=== PATIENT | female | born 1960 | race African-American/Black ===

== ENCOUNTER → 2018-09-08 | Day surgery (SDC) | payer BC ==
--- NOTE | 2018-09-09 16:08 | PATH ---
Surgical Pathology Report Patient Name: PAM HAMILTON [facility] Rec. #: [id number] /Age/Gender: 1960 (Age: 58) / F Account: [id number] Location: [facility] Taken: 09/08/2018 Received: 09/08/2018 Reported: 09/09/2018 Physicians: Donal Brooke M.D. Specimen(s) Received LEFT BREAST SPECIMEN WITH CALCIFICATIONS Clinical History Nonpalpable lesion Mammographic findings: Microcalcification, highly suspicious/malignant Patient has known left breast cancer Final Diagnosis BREAST, LEFT, WITH CALCIFICATIONS, STEREOTACTIC CORE BIOPSY: INVASIVE DUCTAL CARCINOMA, POORLY DIFFERENTIATED, MEASURING AT LEAST 1.7 CM IN THIS MATERIAL. STROMAL CALCIFICATIONS PRESENT. Comment: Immunohistochemical stain performed and interpreted at [facility] show the tumor is diffusely positive for E-cadherin, supportive of ductal phenotype. Results of Estrogen Receptor (ER) and Progesterone Receptor (MI) studies performed at [facility] are as follows: ER (clone [id number] mouse monoclonal antibody by [employer]): ~3-5% nuclear staining with weak intensity (Low Positive). MI (clone16 mouse monoclonal antibody by [employer]): 0% nuclear staining (Negative). Results of Her2 (IHC) & Ki-67 studies pending and will be reported separately Positive and negative controls (internal if applicable) show appropriate results. Formalin fixation and cold ischemic times are within current ASCO/CAP recommendations for ER, MI and Her2 testing. Electronically Signed Shruthi Mccoy M.D. Addendum Reported: 09/12/2018 Addendum Diagnosis A Results of Her2 (IHC) & Ki-67 studies performed on block "1" at [place], [place] ([id number]) are as follows: Her2 IHC (EP3 from [employer], formerly known as [id number], using Diaz Polymer Refine detection kit): 0 (Negative). Ki-67: ~35% (High proliferative index). Comment: PDL-1 and PD-1 pending. Results will be reported as an addendum. Findings discussed with Dr. Navas. Positive and negative controls (internal if applicable) show appropriate results. Shruthi Mccoy M.D. 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 No reactivity is seen within neoplastic cells. See [facility] report (Specimen #: [id number]) for additional details. Reynaldo Bustillos M.D. Addendum Reported: 09/22/2018 Addendum Diagnosis PD-L[facility] [place] ([id number]) shows the following: RESULTS: Case Cancelled PD-L1 SP142 is approved for use in primary or metastatic urothelial or triple negative breast carcinoma only. Per path report, ER is positive (~3-5% nuclear staining reported). Reynaldo Bustillos M.D. Gross Description Received in formalin labeled "left breast with calcifications," are 6 salgado-yellow, cylindrical portions of fibroadipose tissue ranging from 1.4-2.1 cm in length and averaging 0.2 cm in diameter. The specimens are submitted in toto in 2 cassettes. Time to formalin fixation: 5 minutes Total formalin fixation time: Approximately 6 hours. 09/08/2018 saudi09/08/2018
== END | disposition home or self-care (01) ==
LOC: FMAMMOTONE 10:44
PROVIDERS: ATTEND Internal Medicine Hematology & Oncology
PROC: 0HBU3ZX Excision of Left Breast, Percutaneous Approach, Diagnostic (ICD-10-PCS; principal; 2018-09-08)
DX: C50.212 Malignant neoplasm of upper-inner quadrant of left female breast (principal); Z17.0 Estrogen receptor positive status [ER+]; R92.1 Mammographic calcification found on diagnostic imaging of breast
CPT/HCPCS: 19081; 88305-TC; 88342-TC

== ENCOUNTER 2018-11-22 15:13 | Inpatient (IN) | payer BC ==
--- NOTE | 2018-11-22 15:54 | HP ---
CHIEF COMPLAINT: Oncologist: Dr. Navas HISTORY OF PRESENT ILLNESS: 58 year-old female with a PMH significant for left breast cancer presently on immunotherapy. Patient presented earlier today in the office of her oncologist, Dr. Navas. Routine blood worked showed Hgb 8.6, dropped from 10.2. On this admission, Hgb is 8.2. The patient also presented with complaints of increasing shortness of breath that began three days ago and has become progressively worse to the point today where she can no longer walk or speak without feeling SOB. Patient has also been suffering from low back pain that radiates to the right hip and down the right leg. She also reports mild right lid lag x [address] Navas referred patient to [facility] for admission. He advises patient had a recent PET scan that was negative. Recent Travel: No PAST MEDICAL HISTORY: Left breast cancer PAST SURGICAL HISTORY: Partial hysterectomy secondary to fibroids Tonsillectomy Ectopic Social History: Smoking: quit 01/2018; smoked since age 16 Alcohol: occasional wine Drugs: no Family History: Father age 85 with COPD; mother age 85 anemia; sister anemia HOME MEDICATIONS: NONE REVIEW OF SYSTEMS CONSTITUTIONAL: Absent: fever, chills, diaphoresis, generalized weakness, malaise, loss of appetite, weight change HEENT: +right lid lag Absent: rhinorrhea, nasal congestion, throat pain, throat swelling, difficulty swallowing, mouth swelling, ear pain, eye pain, visual changes CARDIOVASCULAR: Absent: chest pain, syncope, palpitations, irregular heart rate, lightheadedness , peripheral edema RESPIRATORY: +SOB Absent: cough, shortness of breath, dyspnea with exertion, orthopnea, wheezing, stridor, hemoptysis GASTROINTESTINAL: Absent: abdominal pain, abdominal distension, nausea, vomiting, diarrhea, constipation, melena, hematochezia GENITOURINARY: Absent: dysuria, frequency, urgency, hesitancy, hematuria, flank pain, genital pain MUSCULOSKELETAL: +low back pain radiating to right hip down right leg Absent: myalgia, arthralgia, joint swelling, neck pain SKIN: Absent: rash, itching, pallor HEMATOLOGIC/IMMUNOLOGIC: Absent: easy bleeding, easy bruising, lymphadenopathy, frequent infections ENDOCRINE: Absent: unexplained weight gain, unexplained weight loss, heat intolerance, cold intolerance NEUROLOGIC: Absent: headache, focal weakness or paresthesias, dizziness, unsteady gait, seizure, mental status changes, bladder or bowel incontinence PSYCHIATRIC: Absent: anxiety, depression, suicidal or homicidal ideation, hallucinations. PHYSICAL EXAMINATION Vital Signs Temperature 9.4 F L 11/22/18 16:28 Pulse Rate 97 H 11/22/18 16:28 Respiratory Rate 17 11/22/18 16:28 Blood Pressure 115/77 11/22/18 16:28 O2 Sat by Pulse Oximetry (%) 98 11/22/18 16:32 GENERAL: Awake, alert, and fully oriented, in no acute distress. HEAD: Normal with no signs of trauma. EYES: Pupils equal, round and reactive to light, extraocular movements intact, sclera anicteric, conjunctiva clear. Mild right sided ptosis EARS, NOSE, THROAT: Ears normal, nares patent, oropharynx clear without exudates. Moist mucous membranes. NECK: Normal range of motion, supple without lymphadenopathy, JVD, or masses. LUNGS: Breath sounds equal, clear to auscultation bilaterally. No wheezes, and no crackles. No accessory muscle use. Dyspneic with speaking HEART: Regular rate and rhythm, S1 and S2 ABDOMEN: Soft, nontender, not distended MUSCULOSKELETAL: SLR to 10 degrees bilaterally secondary to pain UPPER EXTREMITIES: 2+ pulses, warm, well-perfused. No cyanosis. No clubbing. No peripheral edema. LOWER EXTREMITIES: 2+ pulses, warm, well-perfused. No calf tenderness. No peripheral edema. NEUROLOGICAL: Cranial nerves II-XII intact. Normal speech. ASSESSMENT/PLAN 58 year-old female with a PMH significant for left breast cancer presently on immunotherapy. Admitted for anemia requiring transfusion, low back pain with right-sided radiculopathy and SOB. Left breast cancer Anemia associated with neoplastic therapy Microcytic anemia --per Dr. Navas, was to transfuse 2U PRBC but hypoxic with some evidence of CHF (see below) --will give Lasix before and after first unit and reassess in am --iron studies pending (on labs drawn prior to transfusion) Hypoxic respiratory failure Tachycardia --moderate Wells risk for PE; D-dimer >17,600; gave lovenox 65mg x 1 --CTA negative for PE Heart failure NOS --CTA shows mild bibasilar interstitial congestion --had normal echo 08/23/18: LV normal, EF 65%; RV normal; no valvular pathology --repeat echo --Lasix IVP 40mg x 1 ECG changes Prolonged QTc --T wave inversions V1-V5 on serial ECGs -first troponin negative, two pending --ASA 325mg x 1 --telemetry monitoring --cardiology consult; discussed with Dr. Morales, appreciate his input Transaminitis --repeat in am Back pain with right-sided radiculopathy --MRI scheduled for tomorrow --Tylenol q6h scheduled; oxycodone 5mg q6h PRN FEN Fluids: PO intake adequate Electrolytes: replete as indicated Nutrition: regular diet DVT prophylaxis: subq lovenox 40mg at 9am Dispo: continues to require inpatient care. Full code. Problem List - Problem (1) Anemia associated with chemotherapy Code(s): D64.81 - ANEMIA DUE TO ANTINEOPLASTIC CHEMOTHERAPY; T45.1X5A - ADVERSE EFFECT OF ANTINEOPLASTIC AND IMMUNOSUP DRUGS, INIT Visit type - Emergency Visit Emergency Visit: Yes ED Registration Date: 11/22/18 Care time: The patient presented to the Emergency Department on the above date and was hospitalized for further evaluation of their emergent condition. - New Patient This patient is new to me today: Yes Date on this admission: 11/22/18 - Critical Care Critical Care patient: Yes Total Critical Care Time (in minutes): 120 Critical Care Statement: The care of this patient involved high complexity decision making to prevent further life threatening deterioration of the patient 's condition and/or to evaluate & treat vital organ system(s) failure or risk of failure.
[2018-11-22 16:37] VITALS: BMI 23.5
[2018-11-22] MEDS ORDERED: oxyCODONE HCL 5 MG TABLET PO PRN (17:15)
[2018-11-22] MEDS: ACETAMINOPHEN 325 MG TABLET (FP) PO SCH (17:58)
[2018-11-22 18:06] LABS: MCH 24.6 pg (25.7-33.7); MEAN CELL VOLUME 74.5 fl (80-96); MEAN PLT VOLUME 8.2 fl (7.5-11.1); PLATELET COUNT 156 K/MM3 (134-434); RBC 3.36 M/mm3 (3.60-5.2); RDW 21.5 % (11.6-15.6); WHITE BLOOD COUNT 7.7 K/mm3 (4.0-10.8)
[2018-11-22 18:07] LABS: HEMOGLOBIN 8.2 GM/dl (10.7-15.3)
[2018-11-22 18:42] LABS: INR 1.29 (0.82-1.09); PROTHROMBIN TIME (PATIENT) 14.4 SEC (10.2-13.0)
[2018-11-22] MEDS ORDERED: SODIUM CHLORIDE 1,000 ML IV SCH (18:45)
[2018-11-22 18:48] LABS: ALBUMIN 2.6 g/dl (3.4-5.0); BILIRUBIN,TOTAL 0.5 mg/dl (0.2-1); CREATININE 0.6 mg/dl (0.55-1.3); POTASSIUM 4.5 mmol/L (3.5-5.1); TOT PROT 7.4 g/dl (6.4-8.2)
[2018-11-22] MEDS: ALBUTEROL SO4 2.5/IPRATROPIUM 0.5 INH SOL 3 ML VIAL.NEB. NEB SCH (18:54)
[2018-11-22] MEDS ORDERED: ENOXAPARIN NA (PORCINE) 80 MG/0.8 ML DISP.SYRIN SQ SCH (19:30)
[2018-11-22] MEDS ORDERED: IBUPROFEN 800 MG/8 ML IJ IVPB ONE (20:04)
[2018-11-22] MEDS ORDERED: ASPIRIN 325 MG TABLET PO ONE (20:09)
[2018-11-22] MEDS ORDERED: FUROSEMIDE 40 MG/4 ML INJECTABLE VIAL IVPUSH ONE (21:49)
[2018-11-22] MEDS ORDERED: HEPARIN NA (PORCINE) 5,000 UNITS/ML 1ML VIAL SQ SCH (22:00)
[2018-11-23] MEDS: ALBUTEROL SO4 2.5/IPRATROPIUM 0.5 INH SOL 3 ML VIAL.NEB. NEB SCH ×4 (00:26→17:54)
[2018-11-23] MEDS: ACETAMINOPHEN 325 MG TABLET (FP) PO SCH ×5 (00:26→23:15)
[2018-11-23 08:39] LABS: ALBUMIN 2.4 g/dl (3.4-5.0); BILIRUBIN,TOTAL 0.6 mg/dl (0.2-1); CALCIUM 8.9 mg/dl (8.5-10); CREATININE 0.6 mg/dl (0.55-1.3); POTASSIUM 3.5 mmol/L (3.5-5.1); TOT PROT 6.6 g/dl (6.4-8.2)
[2018-11-23 08:50] LABS: BASO % 0.1 % (0-2.0); EOS % 0.2 % (0-4.5); HEMATOCRIT 23.8 % (32.4-45.2); HEMOGLOBIN 7.7 GM/dl (10.7-15.3); LYMPH % 14.5 % (8-40); MCH 24.4 pg (25.7-33.7); MCHC 32.3 g/dl (32.0-36.0); MEAN CELL VOLUME 75.5 fl (80-96); MONO % 4.8 % (3.8-10.2); NEUT % 80.4 % (42.8-82.8); PLATELET COUNT 158 K/MM3 (134-434); RBC 3.15 M/mm3 (3.60-5.2); RDW 21.9 % (11.6-15.6); WHITE BLOOD COUNT 7.4 K/mm3 (4.0-10.8)
[2018-11-23] MEDS: ENOXAPARIN NA (PORCINE) 40 MG/0.4 ML DISP.SYRIN SQ SCH (09:43)
[2018-11-23] MEDS: ASPIRIN COATED 81 MG TABLET.EC PO SCH (09:43)
--- NOTE | 2018-11-23 12:27 | EKG ---
Test Reason : Blood Pressure : / mmHG Vent. Rate : 102 BPM Atrial Rate : 102 BPM P-R Int : 174 ms QRS Dur : 074 ms QT Int : 382 ms P-R-T Axes : 044 027 -28 degrees QTc Int : 497 ms SINUS TACHYCARDIA T WAVE ABNORMALITY, CONSIDER ANTEROLATERAL ISCHEMIA ABNORMAL ECG NO PREVIOUS ECGS AVAILABLE Confirmed by DESTINY HANNA MD ([id number]) on 11/23/2018 12:26:50 PM Referred By: ANEUDY/MARIYA Confirmed By:DESTINY HANNA MD
[2018-11-23] MEDS: IBUPROFEN 800 MG/8 ML IJ IVPB PRN ×2 (13:43→22:10)
--- NOTE | 2018-11-23 14:33 | ECHO ---
Name: PAM HAMILTON Exam:Adult Echocardiogram Study Date: 11/23/2018 12:34 PM Age: 58 yrs Reason For Study: LV Function Height: 55 in Weight: 143 lb BSA: 1.5 m2 MMode/2D Measurements & Calculations IVSd: 0.92 cm Ao root diam: 3.0 cm LVIDd: 3.8 cm LA dimension: 2.7 cm LVIDs: 2.5 cm LVPWd: 0.76 cm EDV(Teich): 60.7 ml LVOT diam: 1.9 cm ESV(Teich): 21.6 ml Doppler Measurements & Calculations MV E max jasvir: 53.7 cm/sec MV A max jasvir: 106.8 cm/sec MV dec slope: 459.2 cm/sec2 MV E/A: 0.50 Ao V2 max: 186.0 cm/sec LV V1 max P.5 mmHg Ao max P.8 mmHg LV V1 mean P.9 mmHg Ao V2 mean: 140.8 cm/sec LV V1 max: 137.0 cm/sec Ao mean P.6 mmHg LV V1 mean: 93.0 cm/sec Ao V2 VTI: 31.0 cm LV V1 VTI: 23.8 cm PHIL(I,D): 2.2 cm2 PHIL(V,D): 2.1 cm2 SV(LVOT): 68.3 ml TR max jasvir: 276.1 cm/sec TR max P.5 mmHg Procedure A two-dimensional transthoracic echocardiogram with color flow and Doppler was performed. Left Ventricle The left ventricular size, thickness and function are normal. The left ventricular ejection fraction is normal. E/A reversal consistent with but not diagnostic of poor LV compliance. The left ventricular w all motion is normal. Right Ventricle The right ventricle is normal in size and function. Atria Normal left and right atrial size and function. Mitral Valve There is mild mitral valve thickening. There is no mitral valve stenosis. There is trace to mild mitr al regurgitation. Tricuspid Valve There is mild tricuspid valve thickening. There is no tricuspid stenosis. There is moderate tricuspid regurgitation. Right ventricular systolic pressure is elevated at 40-50mmHg. Aortic Valve The aortic valve is not well visualized. No hemodynamically significant valvular aortic stenosis. No aortic regurgitation is present. Pulmonic Valve The pulmonic valve is not well visualized. Great Vessels The aortic root is normal size. Pericardium/Pleura There is no pericardial effusion. Interpretation Summary There is moderate tricuspid regurgitation. Right ventricular systolic pressure is elevated at 40-50mmHg. The left ventricular ejection fraction is normal. The left ventricular wall motion is normal. There is trace to mild mitral regurgitation. E/A reversal consistent with but not diagnostic of poor LV compliance MD Jose Antonio Gilmore 11/23/2018 02:32 PM
[2018-11-23] MEDS ORDERED: FUROSEMIDE 40 MG/4 ML INJECTABLE VIAL IVPUSH ONE ×2 (15:51→20:00)
--- NOTE | 2018-11-23 16:44 | CON.CARD ---
Cardiology Consult (text) - Consultation Consultation Note: cc: sob hpi: 58 f hx breast ca on chemo here with sob. No hx hrt dz. Past 5 days has noticed nix that has progressively worsened. Also mild cough. No cp palps dizzy loc pnd orthopnea le edema. Sciatica pain also bothering her. Found to have anemia with hgb 7s. After prbcs feeling better. Cardio eval requested for abnl ecg. pmh: per hpi psh: hysterectomy social: ex tob fam: no premature cad ros: per hpi; all others normal meds: Home Medications Medication Instructions Recorded Acetaminophen 650 mg PO QID PRN 11/22/18 Percocet 5-325 mg Tablet 1 tab PO QID PRN 11/22/18 pe: Vital Signs Period Temp Pulse Resp BP Sys/Erazo Pulse Ox Last 24 Hr 97.4 F-98.5 F 92-104 18-20 101-120/66-71 94-99 nad no jvd rrr s1s2 no mrg cta bl nl eff aao3 no le e/c/c abd nt nd pos bs no jaundice diaphoresis pos dp pt no carotid bruits Laboratory Last Values WBC 7.4 K/mm3 (4.0-10.8) 11/23/18 07:40 RBC 3.15 M/mm3 (3.60-5.2) L 11/23/18 07:40 Hgb 7.7 GM/dl (10.7-15.3) L 11/23/18 07:40 Hct 23.8 % (32.4-45.2) L 11/23/18 07:40 MCV 75.5 fl (80-96) L 11/23/18 07:40 MCH 24.4 pg (25.7-33.7) L 11/23/18 07:40 MCHC 32.3 g/dl (32.0-36.0) 11/23/18 07:40 RDW 21.9 % (11.6-15.6) H 11/23/18 07:40 Plt Count 158 K/MM3 (134-434) 11/23/18 07:40 MPV 10.0 fl (7.5-11.1) 11/23/18 07:40 Absolute Neuts (auto) 5.9 K/mm3 11/23/18 07:40 Neutrophils % 80.4 % (42.8-82.8) 11/23/18 07:40 Lymphocytes % 14.5 % (8-40) 11/23/18 07:40 Monocytes % 4.8 % (3.8-10.2) 11/23/18 07:40 Eosinophils % 0.2 % (0-4.5) 11/23/18 07:40 Basophils % 0.1 % (0-2.0) 11/23/18 07:40 PT with INR 14.4 SEC (10.2-13.0) H 11/22/18 18:20 INR 1.29 (0.82-1.09) H 11/22/18 18:20 PTT (Actin FS) 19.7 SECONDS (25.2-36.5) L 11/22/18 18:20 D-Dimer 23031 ng/ml (0-500) H 11/22/18 18:20 Sodium 136 mmol/L (136-145) 11/23/18 07:40 Potassium 3.5 mmol/L (3.5-5.1) 11/23/18 07:40 Chloride 102 mmol/L (98-107) 11/23/18 07:40 Carbon Dioxide 24 mmol/L (21-32) 11/23/18 07:40 Anion Gap 10 MMOL/L (8-16) 11/23/18 07:40 BUN 17.0 mg/dl (7-18) 11/23/18 07:40 Creatinine 0.6 mg/dl (0.55-1.3) 11/23/18 07:40 Est GFR (CKD-EPI)AfAm 116.45 11/23/18 07:40 Est GFR (CKD-EPI)NonAf 100.47 11/23/18 07:40 Random Glucose 108 mg/dl (74-106) H 11/23/18 07:40 Calcium 8.9 mg/dl (8.5-10) 11/23/18 07:40 Magnesium 2.0 mg/dL (1.8-2.4) 11/23/18 07:40 Ferritin 2542.6 ng/ml (8-388) H 11/22/18 17:20 Total Bilirubin 0.6 mg/dl (0.2-1) 11/23/18 07:40 AST 69 U/L (15-37) H 11/23/18 07:40 ALT 76 U/L (13-61) H 11/23/18 07:40 Alkaline Phosphatase 110 U/L (45-117) D 11/23/18 07:40 Creatine Kinase 90 U/L (26-192) 11/23/18 00:00 Troponin I 0.02 ng/ml (0.00-0.05) 11/23/18 00:00 B-Natriuretic Peptide 2201.0 pg/ml (5-125) H 11/23/18 07:40 Total Protein 6.6 g/dl (6.4-8.2) 11/23/18 07:40 Albumin 2.4 g/dl (3.4-5.0) L 11/23/18 07:40 Blood Type O POSITIVE 11/22/18 17:50 Antibody Screen Negative 11/22/18 17:20 Crossmatch See Detail 11/22/18 17:20 ecgs: sr, nl intervals, no st changes, antlat twis cta lungs: no pe, mild chf echo 07/2018: nl lv/rv, no sig valve path echo 10/2018: nl lv/rv, mod tr, rvsp 40-50 tele: sr a/p: 58 f hx breast ca on chemo here with sob. sob, anemia: -likely sob 2/2 anemia as pt reports improved symptoms after first unit of prbcs. she said that her sob was not improved after iv lasix last night. cont with second unit of prbc as planned. -no overt chf, agree with iv lasix after prbcs -echo unremarkable except for elevated RVSP, would repeat echo as outpt after acute issues resolve to monitor. abnl ecg: -ecg with anterolateral twi's, no prior to compare but pt says she was told her ecg was normal within past several months. -no signs acs, ce's neg x2, echo with no wma's -possibly related to anemia but also could represent underlying cad so will send for nuclear stress test tomorrow.
[2018-11-24] MEDS: ACETAMINOPHEN 325 MG TABLET (FP) PO SCH ×4 (06:15→23:58)
[2018-11-24] MEDS: IBUPROFEN 800 MG/8 ML IJ IVPB PRN ×2 (06:49→15:32)
[2018-11-24 07:52] LABS: HEMOGLOBIN 10.2 GM/dl (10.7-15.3)
[2018-11-24 08:06] LABS: ALBUMIN 2.4 g/dl (3.4-5.0); BILIRUBIN,TOTAL 0.7 mg/dl (0.2-1); CREATININE 0.7 mg/dl (0.55-1.3); MAGNESIUM 1.8 mg/dL (1.8-2.4); POTASSIUM 3.9 mmol/L (3.5-5.1); TOT PROT 6.6 g/dl (6.4-8.2)
[2018-11-24 08:07] LABS: BASO % 0.2 % (0-2.0); EOS % 0.4 % (0-4.5); HEMATOCRIT 31.1 % (32.4-45.2); LYMPH % 18.6 % (8-40); MCH 25.4 pg (25.7-33.7); MCHC 32.8 g/dl (32.0-36.0); MEAN CELL VOLUME 77.5 fl (80-96); MONO % 2.9 % (3.8-10.2); NEUT % 77.9 % (42.8-82.8); PLATELET COUNT 127 K/MM3 (134-434); RBC 4.02 M/mm3 (3.60-5.2); RDW 20.2 % (11.6-15.6); WHITE BLOOD COUNT 5.1 K/mm3 (4.0-10.8)
[2018-11-24] MEDS: ASPIRIN COATED 81 MG TABLET.EC PO SCH (09:59)
[2018-11-24] MEDS: ENOXAPARIN NA (PORCINE) 40 MG/0.4 ML DISP.SYRIN SQ SCH (10:00)
[2018-11-24] MEDS ORDERED: REGADENOSON 0.4 MG/5 ML PRE-FILLED SYRINGE IVPUSH ONE ×2 (10:45→11:27)
--- NOTE | 2018-11-24 11:16 | PN ---
Physical Exam: SUBJECTIVE: Patient seen and examined at bedside. Desats to 70s off O2. OBJECTIVE: Vital Signs Period Temp Pulse Resp BP Sys/Erazo Pulse Ox Last 24 Hr 97.4 F-99.3 F 92-104 16-18 111-122/67-87 96-98 GENERAL: The patient is awake, alert, and fully oriented, in no acute distress. LUNGS: Breath sounds equal, clear to auscultation bilaterally, no wheezes, no crackles, no accessory muscle use. HEART: Regular rate and rhythm, S1, S2 without murmur, rub or gallop. ABDOMEN: Soft, nontender, nondistended, normoactive bowel sounds EXTREMITIES: 2+ pulses, warm, well-perfused, no edema. NEUROLOGICAL: Cranial nerves II through XII grossly intact. Normal speech Laboratory Results - last 24 hr 11/22/18 11/22/18 11/22/18 17:20 17:20 20:29 WBC RBC Hgb Hct MCV MCH MCHC RDW Plt Count MPV Absolute Neuts (auto) Neutrophils % Lymphocytes % Monocytes % Eosinophils % Basophils % Sodium Potassium Chloride Carbon Dioxide Anion Gap BUN Creatinine Est GFR (CKD-EPI)AfAm Est GFR (CKD-EPI)NonAf Random Glucose Calcium Magnesium Transferrin 181 L Total Bilirubin AST ALT Alkaline Phosphatase Creatine Kinase Cancelled Total Protein Albumin Blood Type O POSITIVE Antibody Screen Negative Crossmatch See Detail 11/24/18 11/24/18 07:21 07:21 WBC 5.1 RBC 4.02 Hgb 10.2 L Hct 31.1 L D MCV 77.5 L MCH 25.4 L MCHC 32.8 RDW 20.2 H Plt Count 127 L MPV 9.0 Absolute Neuts (auto) 4.1 Neutrophils % 77.9 Lymphocytes % 18.6 Monocytes % 2.9 L Eosinophils % 0.4 Basophils % 0.2 Sodium 137 Potassium 3.9 Chloride 97 L Carbon Dioxide 25 Anion Gap 15 BUN 17.0 Creatinine 0.7 Est GFR (CKD-EPI)AfAm 110.69 Est GFR (CKD-EPI)NonAf 95.50 Random Glucose 83 Calcium 9.0 Magnesium 1.8 Transferrin Total Bilirubin 0.7 AST 62 H ALT 74 H Alkaline Phosphatase 111 Creatine Kinase Total Protein 6.6 Albumin 2.4 L Blood Type Antibody Screen Crossmatch Active Medications Generic Name Dose Route Start Last Admin Trade Name Freq PRN Reason Stop Dose Admin Acetaminophen 650 mg 06/25/19 17:15 11/24/18 06:15 Tylenol - PO 650 mg Q6HPO NITIN Administration Aspirin 81 mg 11/23/18 10:00 11/24/18 09:59 Ecotrin - PO 81 mg DAILY NITIN Administration Enoxaparin Sodium 40 mg 11/23/18 10:00 11/24/18 10:00 Lovenox - SQ 40 mg DAILY NITIN Administration Ibuprofen 800 mg 11/23/18 12:10 11/24/18 06:49 Caldolor Injection - IVPB 800 mg Q8H PRN Administration FEVER ASSESSMENT/PLAN: 58 year-old female with a PMH significant for left breast cancer presently on chemo/immunotherapy. Admitted for anemia requiring transfusion, low back pain with right-sided radiculopathy and SOB. Left breast cancer Anemia associated with neoplastic therapy Microcytic anemia --Hgb 7.7-->10.2 after 2U PRBC transfused on 11/23 --iron studies pending (on labs drawn prior to transfusion) Hypoxic respiratory failure of uncertain etiology --symptoms of SOB started 6 days ago and have become progressively worse, desats to 70s on room air --no overt CHF, has been transfused back to baseline Hgb, no signs of infection --ischemic heart disease unlikely but waiting today's stress test results --discussed with Drs. Vance and Eloise; I will discuss CTA findings again with Dr. William this evening and ask him to re-review for signs of malignancy; may need to transfer patient for lung biopsy +/- PET Heart failure ruled out --CTA shows mild bibasilar interstitial congestion --had normal echo 08/23/18: LV normal, EF 65%; RV normal; no valvular pathology --11/23 Echo: LV normal; RV normal; trace to mild MR; moderate TR; elevated RVSP --Lasix given last night with no improvement in oxygen sat and no relief of SOB --seen and evaluated by cardiology, no overt CHF ECG changes Prolonged QTc --T wave inversions V1-V5 on serial ECGs --serial troponins negative --daily ASA --telemetry monitoring --nuclear stress today Transaminitis --trending down Back pain with right-sided radiculopathy --MRI as outpatient --no relief with tylenol, oxy; motrin 800mg q8h FEN Fluids: PO intake adequate Electrolytes: replete as indicated Nutrition: regular diet DVT prophylaxis: subq lovenox Dispo: continues to require inpatient care. Full code. Problem List - Problems (1) Anemia associated with chemotherapy Code(s): D64.81 - ANEMIA DUE TO ANTINEOPLASTIC CHEMOTHERAPY; T45.1X5A - ADVERSE EFFECT OF ANTINEOPLASTIC AND IMMUNOSUP DRUGS, INIT Visit type - Emergency Visit Emergency Visit: Yes ED Registration Date: 11/22/18 Care time: The patient presented to the Emergency Department on the above date and was hospitalized for further evaluation of their emergent condition. - New Patient This patient is new to me today: No - Critical Care Critical Care patient: No
--- NOTE | 2018-11-24 11:16 | PN ---
Physical Exam: SUBJECTIVE: Patient seen and examined at bedside. First unit PRBC done, feels less SOB, speaking is much easier, able to talk on the phone with family members. Back and hip pain is improved on Motrin. OBJECTIVE: Vital Signs Period Temp Pulse Resp BP Sys/Erazo Pulse Ox Last 24 Hr 97.4 F-99.3 F 92-104 16-18 111-122/67-87 96-98 GENERAL: The patient is awake, alert, and fully oriented, in no acute distress. LUNGS: Breath sounds equal, clear to auscultation bilaterally, no wheezes, no crackles, no accessory muscle use. HEART: Regular rate and rhythm, S1, S2 without murmur, rub or gallop. ABDOMEN: Soft, nontender, nondistended, normoactive bowel sounds EXTREMITIES: 2+ pulses, warm, well-perfused, no edema. NEUROLOGICAL: Cranial nerves II through XII grossly intact. Normal speech Laboratory Results - last 24 hr 11/22/18 11/22/18 11/22/18 17:20 17:20 20:29 WBC RBC Hgb Hct MCV MCH MCHC RDW Plt Count MPV Absolute Neuts (auto) Neutrophils % Lymphocytes % Monocytes % Eosinophils % Basophils % Sodium Potassium Chloride Carbon Dioxide Anion Gap BUN Creatinine Est GFR (CKD-EPI)AfAm Est GFR (CKD-EPI)NonAf Random Glucose Calcium Magnesium Transferrin 181 L Total Bilirubin AST ALT Alkaline Phosphatase Creatine Kinase Cancelled Total Protein Albumin Blood Type O POSITIVE Antibody Screen Negative Crossmatch See Detail 11/24/18 11/24/18 07:21 07:21 WBC 5.1 RBC 4.02 Hgb 10.2 L Hct 31.1 L D MCV 77.5 L MCH 25.4 L MCHC 32.8 RDW 20.2 H Plt Count 127 L MPV 9.0 Absolute Neuts (auto) 4.1 Neutrophils % 77.9 Lymphocytes % 18.6 Monocytes % 2.9 L Eosinophils % 0.4 Basophils % 0.2 Sodium 137 Potassium 3.9 Chloride 97 L Carbon Dioxide 25 Anion Gap 15 BUN 17.0 Creatinine 0.7 Est GFR (CKD-EPI)AfAm 110.69 Est GFR (CKD-EPI)NonAf 95.50 Random Glucose 83 Calcium 9.0 Magnesium 1.8 Transferrin Total Bilirubin 0.7 AST 62 H ALT 74 H Alkaline Phosphatase 111 Creatine Kinase Total Protein 6.6 Albumin 2.4 L Blood Type Antibody Screen Crossmatch Active Medications Generic Name Dose Route Start Last Admin Trade Name Martha PRN Reason Stop Dose Admin Acetaminophen 650 mg 11/22/18 17:15 11/24/18 06:15 Tylenol - PO 650 mg Q6HPO NITIN Administration Aspirin 81 mg 11/23/18 10:00 11/24/18 09:59 Ecotrin - PO 81 mg DAILY NITIN Administration Enoxaparin Sodium 40 mg 11/23/18 10:00 11/24/18 10:00 Lovenox - SQ 40 mg DAILY NITIN Administration Ibuprofen 800 mg 11/23/18 12:10 11/24/18 06:49 Caldolor Injection - IVPB 800 mg Q8H PRN Administration FEVER ASSESSMENT/PLAN 58 year-old female with a PMH significant for left breast cancer presently on chemo/immunotherapy. Admitted for anemia requiring transfusion, low back pain with right-sided radiculopathy and SOB. Left breast cancer Anemia associated with neoplastic therapy Microcytic anemia --Hgb 7.7; transfuse 2U PRBC with Lasix after each unit --iron studies pending (on labs drawn prior to transfusion) Hypoxic respiratory failure of uncertain etiology Tachycardia --CTA negative for PE --desats to mid 80s on room air at rest --titrate SpO2 >95% Heart failure NOS --CTA shows mild bibasilar interstitial congestion --had normal echo 08/23/18: LV normal, EF 65%; RV normal; no valvular pathology --11/23 Echo: LV normal; RV normal; trace to mild MR; moderate TR; elevated RVSP --Lasix given last night with no improvement in oxygen sat and no relief of SOB --seen and evaluated by cardiology, no overt CHF ECG changes Prolonged QTc --T wave inversions V1-V5 on serial ECGs --serial troponins negative --daily ASA --telemetry monitoring --nuclear stress tomorrow Transaminitis --trending down Back pain with right-sided radiculopathy --MRI scheduled for tomorrow --no relief with tylenol, oxy; motrin 800mg q8h FEN Fluids: PO intake adequate Electrolytes: replete as indicated Nutrition: regular diet DVT prophylaxis: subq lovenox Dispo: continues to require inpatient care. Full code. Problem List - Problems (1) Anemia associated with chemotherapy Code(s): D64.81 - ANEMIA DUE TO ANTINEOPLASTIC CHEMOTHERAPY; T45.1X5A - ADVERSE EFFECT OF ANTINEOPLASTIC AND IMMUNOSUP DRUGS, INIT Visit type - Emergency Visit Emergency Visit: Yes ED Registration Date: 11/22/18 Care time: The patient presented to the Emergency Department on the above date and was hospitalized for further evaluation of their emergent condition. - New Patient This patient is new to me today: No - Critical Care Critical Care patient: No
--- NOTE | 2018-11-24 14:25 | PN ---
Progress Note (short form) - Note Progress Note: s: no cp sob palps dizzy o: Vital Signs Period Temp Pulse Resp BP Sys/Erazo Pulse Ox Last 24 Hr 97.7 F-99.3 F 92-100 16-18 111-122/67-87 96-98 nad no jvd rrr s1s2 no mrg cta bl nl eff aao3 no le e/c/c abd nt nd pos bs no jaundice diaphoresis Current Medications Generic Name Dose Route Start Last Admin Trade Name Freq PRN Reason Stop Dose Admin Acetaminophen 650 mg 11/22/18 17:15 11/24/18 06:15 Tylenol - PO 650 mg Q6HPO NITIN Administration Aspirin 81 mg 11/23/18 10:00 11/24/18 09:59 Ecotrin - PO 81 mg DAILY NITIN Administration Enoxaparin Sodium 40 mg 11/23/18 10:00 11/24/18 10:00 Lovenox - SQ 40 mg DAILY NITIN Administration Ibuprofen 800 mg 11/23/18 12:10 11/24/18 06:49 Caldolor Injection - IVPB 800 mg Q8H PRN Administration FEVER CBC, BMP 11/24/18 07:21 11/24/18 07:21 mibi 10/2018: nl mpi, nl lvef ecgs: sr, nl intervals, no st changes, antlat twis cta lungs: no pe, mild chf echo 07/2018: nl lv/rv, no sig valve path echo 10/2018: nl lv/rv, mod tr, rvsp 40-50 a/p: 58 f hx breast ca on chemo here with sob. sob, anemia: -likely sob 2/2 anemia as pt reports improved symptoms after prbcs. she said that her sob was not improved after iv lasix. -echo unremarkable except for elevated RVSP, would repeat echo as outpt after acute issues resolve to monitor. abnl ecg: -ecg with anterolateral twi's, no prior to compare but pt says she was told her ecg was normal within past several months. -no signs acs, ce's neg x2, echo with no wma's -nuclear stress test done today is wnl. -possibly ecg changes related to anemia. cardiac posadas stable
[2018-11-24] MEDS ORDERED: predniSONE 20 MG TABLET (UD) PO ONE (16:08)
--- NOTE | 2018-11-24 16:17 | PN ---
Progress Note (short form) - Note Progress Note: 58 yof w TNBC loc adv known to Dr Navas and receiving abraxane /atezolizumab adm w sev days sob,dry cough Found w moderate anemia and given PCs x2, lasix w some relief in sxs Nursing notes that she remains w variable de-sats to 60s and is currently on 2L NC w O2 sat 98 CT does not evid PE and shows mild vasc kayley. going for nst today per cardiol PE nad R upper lid mild swelling lungs-cta cvs reg S1S2 abd-soft,nt,nd ext-no edema Imp: loc adv breast cancer ongoing tx and has recd 2 doses atezo new sob w worsened anemia the hypoxia is concerning and of unclear etiol. while CT does not evid much in terms of pneumonitis or lymphangitic disease, would nevertheless start prednisone 1 mg/kg for possib irAE or latter Appears euvolemic
[2018-11-25 00:08] LABS: SERUM IRON SATURATION 25 % (15-55); TOTAL IRON BINDING CAPACITY 374 ug/dL (250-450)
[2018-11-25] MEDS: ACETAMINOPHEN 325 MG TABLET (FP) PO SCH ×2 (06:42→12:46)
[2018-11-25] MEDS: ASPIRIN COATED 81 MG TABLET.EC PO SCH (10:17)
[2018-11-25] MEDS: ENOXAPARIN NA (PORCINE) 40 MG/0.4 ML DISP.SYRIN SQ SCH (10:17)
[2018-11-25] MEDS ORDERED: predniSONE 20 MG TABLET (UD) PO SCH (11:15)
--- NOTE | 2018-11-25 12:20 | PN ---
Physical Exam: SUBJECTIVE: Patient seen and examined OBJECTIVE: Vital Signs Period Temp Pulse Resp BP Sys/Erazo Pulse Ox Last 24 Hr 97.9 F-98.4 F 98-118 18-20 114-136/74-89 66-95 GENERAL: The patient is awake, alert, and fully oriented, in no acute distress. HEAD: Normal with no signs of trauma. EYES: PERRL, extraocular movements intact, sclera anicteric, conjunctiva clear. No ptosis. ENT: Ears normal, nares patent, oropharynx clear without exudates, moist mucous membranes. NECK: Trachea midline, full range of motion, supple. LUNGS: Breath sounds equal, clear to auscultation bilaterally, no wheezes, no crackles, no accessory muscle use. HEART: Regular rate and rhythm, S1, S2 without murmur, rub or gallop. ABDOMEN: Soft, nontender, nondistended, normoactive bowel sounds, no guarding, no rebound, no hepatosplenomegaly, no masses. EXTREMITIES: 2+ pulses, warm, well-perfused, no edema. NEUROLOGICAL: Cranial nerves II through XII grossly intact. Normal speech, gait not observed. PSYCH: Normal mood, normal affect. SKIN: Warm, dry, normal turgor, no rashes or lesions noted Laboratory Results - last 24 hr 11/22/18 17:20 Iron 92 TIBC 374 Iron Saturation 25 Unsaturated IBC 282 Active Medications Generic Name Dose Route Start Last Admin Trade Name Freq PRN Reason Stop Dose Admin Acetaminophen 650 mg 11/22/18 17:15 11/25/18 06:42 Tylenol - PO 650 mg Q6HPO NITIN Administration Aspirin 81 mg 11/23/18 10:00 11/25/18 10:17 Ecotrin - PO 81 mg DAILY NITIN Administration Enoxaparin Sodium 40 mg 11/23/18 10:00 11/25/18 10:17 Lovenox - SQ 40 mg DAILY NITIN Administration Ibuprofen 800 mg 11/23/18 12:10 11/24/18 15:32 Caldolor Injection - IVPB 800 mg Q8H PRN Administration FEVER Prednisone 60 mg 11/25/18 11:15 Deltasone - PO DAILY NITIN ASSESSMENT/PLAN: Problem List - Problems (1) Anemia associated with chemotherapy Code(s): D64.81 - ANEMIA DUE TO ANTINEOPLASTIC CHEMOTHERAPY; T45.1X5A - ADVERSE EFFECT OF ANTINEOPLASTIC AND IMMUNOSUP DRUGS, INIT
--- NOTE | 2018-11-25 12:55 | CON.PULM ---
Consult Consult Specialty:: PULMONARY Referred by:: BE Reason for Consultation:: SOB - History of Present Illness Chief Complaint: SOB/BACK PAIN History of Present Illness: 58 year-old female with a PMH significant for left breast cancer presently on immunotherapy. Patient presented prior to admission in office of her oncologist , Dr. Navas. Routine blood worked showed Hgb 8.6, dropped from 10.2. On this admission, Hgb is 8.2. The patient also presented with complaints of increasing shortness of breath that began three days prior to admission and had become progressively worse to the point where she can no longer walk or speak without feeling SOB. Patient has also been suffering from low back pain that radiates to the right hip and down the right leg. She also reports mild right lid lag x [address] Navas referred patient to [facility] for admission. He advises patient had a recent PET scan that was negative. Patient has smoked minimally in past. Presently, she feels much improved and states that if her back didn't hurt she would leave the hospital. 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 Cardio/Vascular: No: AFIB Pulmonary: No: Asthma, Bronchitis, COPD, O2 Dependent, Pneumonia Gastrointestinal: No: Ascites Hepatobiliary: No: Cirrhosis Renal/: No: Renal Failure Reproductive: Yes: Postmenopausal ...: No Heme/Onc: Yes: Anemia, Cancer (BREAST), Current Chemotherapy Endocrine: No: Diabetes Mellitus - Alcohol/Substance Use Hx Alcohol Use: No History of Substance Use: reports: None - Smoking History Smoking history: Never smoked Have you smoked in the past 12 months: No - Social History Place of : Other History of Recent Travel: No Home Medications - Allergies Allergies/Adverse Reactions: Allergies Allergy/AdvReac Type Severity Reaction Status Date / Time No Known Drug Allergies Allergy Verified 11/22/18 16:17 - Home Medications Home Medications: Ambulatory Orders Acetaminophen 650 mg PO QID PRN 11/22/18 Percocet 5-325 mg Tablet 1 tab PO QID PRN 11/22/18 Review of Systems - Review of Systems Constitutional: denies: Fever Eyes: denies: Blurred Vision HENT: denies: Difficult Swallowing Neck: denies: Decreased ROM Cardiovascular: denies: Chest Pain Respiratory: reports: Exercise Intolerance, SOB, SOB on Exertion. denies: Cough , Hemoptysis, Snoring, Wheezing Gastrointestinal: reports: No Symptoms Genitourinary: reports: No Symptoms Musculoskeletal: reports: Back Pain Integumentary: reports: No Symptoms Neurological: reports: No Symptoms Endocrine: reports: No Symptoms Physical Exam Vital Sings: Vital Signs Temperature 98.4 F 11/25/18 10:00 Pulse Rate 115 H 11/25/18 12:47 Respiratory Rate 18 11/25/18 10:00 Blood Pressure 136/74 11/25/18 10:00 O2 Sat by Pulse Oximetry (%) 94 L 11/25/18 12:47 Constitutional: Yes: Calm Eyes: Yes: EOM Intact HENT: Yes: Normocephalic Neck: Yes: Trachea Midline Cardiovascular: Yes: Tachycardia, S1, S2 Respiratory: Yes: CTA Bilaterally Gastrointestinal: Yes: WNL, Soft Renal/: Yes: WNL Musculoskeletal: Yes: Back Pain Extremities: Yes: WNL Neurological: Yes: Alert Psychiatric: Yes: Alert Labs: CBC, BMP 11/24/18 07:21 11/24/18 07:21 REST REVIEWED Imaging - Results Chest X-ray: Report Reviewed, Image Reviewed Cat Scan: Report Reviewed, Image Reviewed Other: Report Reviewed Problem List - Problems (1) Dyspnea and respiratory abnormalities Code(s): R06.00 - DYSPNEA, UNSPECIFIED; R06.89 - OTHER ABNORMALITIES OF BREATHING (2) Anemia associated with chemotherapy Code(s): D64.81 - ANEMIA DUE TO ANTINEOPLASTIC CHEMOTHERAPY; T45.1X5A - ADVERSE EFFECT OF ANTINEOPLASTIC AND IMMUNOSUP DRUGS, INIT (3) Chemotherapy adverse reaction Code(s): T45.1X5A - ADVERSE EFFECT OF ANTINEOPLASTIC AND IMMUNOSUP DRUGS, INIT (4) Hypoxemia Code(s): R09.02 - HYPOXEMIA Assessment/Plan UNEXPLAINED DYSPNEA SPO2 R/A 93% HR 117 POST AMBULATION HR 127 SPO2 90% CTA NEGATIVE FOR PE/LUNG PARENCHYEMA APPEARS TO HAVE EARLY INTERSTITIAL DISEASE WITH SIGNIFICANT AMOUNT OF BIBASILAR BROCHIECTATIC CHANGES AND LINEAR ATELECTASIS ? DRUG INDUCED AGREE WITH STEROIDS/CONSIDER SHORT COURSE IV MEDROL SEVERE BACK PAIN WOULD ORDER BONE SCAN IF NOT ALREADY DONE KEEP HGB OVER 8GRAMS WILL FOLLOW Luther DAVIDSON MD
[2018-11-25 13:57] LABS: BASO % 0.1 % (0-2.0); EOS % 0.1 % (0-4.5); HEMATOCRIT 37.7 % (32.4-45.2); LYMPH % 16.2 % (8-40); MEAN CELL VOLUME 78.2 fl (80-96); MEAN PLT VOLUME 9.5 fl (7.5-11.1); MONO % 2.4 % (3.8-10.2); NEUT % 81.2 % (42.8-82.8); PLATELET COUNT 118 K/MM3 (134-434); RBC 4.81 M/mm3 (3.60-5.2); RDW 21.4 % (11.6-15.6); WHITE BLOOD COUNT 8.4 K/mm3 (4.0-10.8)
[2018-11-25 13:59] LABS: ADD RBC MORPHOLOGY YES
[2018-11-25 14:16] LABS: ANISOCYTOSIS 2+; MACROCYTOSIS 1+
[2018-11-25 14:17] LABS: PLATELET ESTIMATE DECREASED; TARGET CELLS 1+
[2018-11-25 14:25] VITALS: BP 133/78; PULSE 107; TEMP 97.6
--- NOTE | 2018-11-25 15:08 | DS ---
Physical Exam: SUBJECTIVE: Patient seen and examined OBJECTIVE: Vital Signs Period Temp Pulse Resp BP Sys/Erazo Pulse Ox Last 24 Hr 97.6 F-98.4 F 98-118 18-20 114-136/74-89 66-95 PHYSICAL EXAM GENERAL: The patient is awake, alert, and fully oriented, in no acute distress. HEAD: Normal with no signs of trauma. EYES: PERRL, extraocular movements intact, sclera anicteric, conjunctiva clear. ENT: Ears normal, nares patent, oropharynx clear without exudates, moist mucous membranes. NECK: Trachea midline, full range of motion, supple. LUNGS: Breath sounds equal, clear to auscultation bilaterally, no wheezes, no crackles, no accessory muscle use. HEART: Regular rate and rhythm, S1, S2 without murmur, rub or gallop. ABDOMEN: Soft, nontender, nondistended, normoactive bowel sounds, no guarding, no rebound, no hepatosplenomegaly, no masses. EXTREMITIES: 2+ pulses, warm, well-perfused, no edema. NEUROLOGICAL: Cranial nerves II through XII grossly intact. Normal speech, gait not observed. PSYCH: Normal mood, normal affect. SKIN: Warm, dry, normal turgor, no rashes or lesions noted. LABS Laboratory Results - last 24 hr 11/22/18 11/25/18 17:20 13:15 WBC 8.4 RBC 4.81 Hgb 12.0 Hct 37.7 D MCV 78.2 L MCH 25.0 L MCHC 32.0 RDW 21.4 H Plt Count 118 L MPV 9.5 Absolute Neuts (auto) 6.8 Neutrophils % 81.2 Lymphocytes % 16.2 Monocytes % 2.4 L Eosinophils % 0.1 Basophils % 0.1 Hypochromia 1+ Platelet Estimate Decreased Platelet Comment Moderate large plts Anisocytosis 2+ Microcytosis 1+ Macrocytosis 1+ Target Cells 1+ Iron 92 TIBC 374 Iron Saturation 25 Unsaturated IBC 282 HOSPITAL COURSE: Date of Admission:11/22/18 Date of Discharge: 11/25/18 Discharge Summary Reason For Visit: ANEMIA REQUIRING TRANSFUSION Current Active Problems Anemia associated with chemotherapy (Acute) Chemotherapy adverse reaction (Acute) Dyspnea and respiratory abnormalities (Acute) Hypoxemia (Acute) Condition: Stable - Instructions Diet, Activity, Other Instructions: A prescription has been sent to your pharmacy for prednisone 20mg. Take one pill each day starting 11/26/18. Continue this medication until you follow up with Dr. Navas on Wednesday and he will advise you going further. Referrals: Yoni Navas MD [Staff Physician] - Disposition: HOME - Home Medications Comprehensive Discharge Medication List: Ambulatory Orders Acetaminophen 650 mg PO QID PRN 11/22/18 Percocet 5-325 mg Tablet 1 tab PO QID PRN 11/22/18 predniSONE [Deltasone -] 20 mg PO DAILY #7 tablet MDD 1 11/25/18 Problem List - Problems (1) Anemia associated with chemotherapy Code(s): D64.81 - ANEMIA DUE TO ANTINEOPLASTIC CHEMOTHERAPY; T45.1X5A - ADVERSE EFFECT OF ANTINEOPLASTIC AND IMMUNOSUP DRUGS, INIT
[2018-11-25] MEDS: IBUPROFEN 800 MG/8 ML IJ IVPB PRN (15:37)
== END 2018-11-25 17:03 | disposition home or self-care (01) | DRG 811 ==
LOC: FM/S 15:13
PROVIDERS: ADMIT Internal Medicine; ATTEND Nurse Practitioner Acute Care
PROC: 30233N1 Transfusion of Nonautologous Red Blood Cells into Peripheral Vein, Percutaneous Approach (ICD-10-PCS; principal; 2018-11-23)
DX: D64.81 Anemia due to antineoplastic chemotherapy (principal); J96.91 Respiratory failure, unspecified with hypoxia; R00.0 Tachycardia, unspecified; M54.10 Radiculopathy, site unspecified; R74.0 Nonspecific elevation of levels of transaminase and lactic acid dehydrogenase [LDH]; T45.1X5A Adverse effect of antineoplastic and immunosuppressive drugs, initial encounter; C50.912 Malignant neoplasm of unspecified site of left female breast
CPT/HCPCS: 36415; 36430; 36511; 71045-TC-FY; 71275-TC; 78452-TC; 80053; 82550; 82728; 83540; 83550; 83735; 83880; 84466; 84484; 85025; 85027; 85379; 85610; 85730; 86850; 86900; 86901; 86922; 93005; 93017; 93306-TC; 94640; A9502; J7030; P9038; P9058